=== PATIENT | female | born 1980 | race African-American/Black ===

== ENCOUNTER 2017-10-17 08:10 | Emergency (ER) | payer MEDICARE, OTHER ==
[~2017-10-17] VITALS: Ht 160 cm; Wt 105.0 kg
[2017-10-17] MEDS ORDERED: SODIUM CHLORIDE 0.9% 1,000 ML IV ONE (08:35)
[2017-10-17] MEDS ORDERED: ONDANSETRON HCL 4MG/2ML VIAL IV STA (08:35)
[2017-10-17] MEDS ORDERED: VISCOUS LIDOCAINE 2% 15 ML UDC PO ONE (08:45)
[2017-10-17] MEDS ORDERED: MAGNESIUM/ALUMINUM HYDROXIDE/SIMETHICONE 30ML UDC PO ONE (08:45)
[2017-10-17 09:50] LABS: BASOPHILS % 0.4 % (0.0-2.0); EOSINOPHILS % 0.9 % (0.0-5.0); HEMATOCRIT. 34.7 % (36.0-48.0); HEMOGLOBIN. 11.1 g/dL (12.0-16.0); LYMPHOCYTES % 16.4 % (20.0-50.0); MEAN CORPUSCULAR HEMOGLOBIN 26.1 pg (28.0-32.0); MEAN CORPUSCULAR VOLUME 81.9 fL (81.0-99.0); MEAN PLATELET VOLUME 8.4 fl (7.4-10.4); MONOCYTES % 4.7 % (2.0-8.0); NEUTROPHILS % 77.6 % (40.0-76.0); PLATELET 364 x1000/uL (130-400); RED BLOOD CELL COUNT 4.24 mill/uL (4.2-5.4); RED CELL DISTRIBUTION WIDTH 15.5 % (11.6-14.6)
[2017-10-17 09:57] LABS: CHLORIDE 104 mEq/L (98-107)
[2017-10-17 09:58] LABS: PROTHROMBIN TIME 9.6 sec (9.1-11.1)
[2017-10-17] MEDS ORDERED: ASPIRIN 81MG TABLET PO ONE (11:00)
[2017-10-17 12:13] VITALS: BP 131/78
== END 2017-10-17 12:52 | disposition left against medical advice (07) ==
LOC: ER 08:10
DX: R42 Dizziness and giddiness (principal); R07.89 Other chest pain; R06.02 Shortness of breath; R11.10 Vomiting, unspecified; D64.9 Anemia, unspecified; R00.0 Tachycardia, unspecified; R10.9 Unspecified abdominal pain; I10 Essential (primary) hypertension; E11.9 Type 2 diabetes mellitus without complications
CPT/HCPCS: 36415; 71045; 80053; 83880; 84484; 85025; 85610; 93005; 96361; 96374; 99285; J2405; J7030